=== PATIENT | female | born 1980 | race Caucasian/White ===

== ENCOUNTER 2016-10-03 14:41 | Emergency (ER) | payer OTHER ==
[2016-10-03 14:48] VITALS: TEMP 98; BMI 22.6
--- NOTE | 2016-10-03 15:01 | PDOC ---
Rapid Medical Evaluation Chief Complaint: Vaginal Bleeding Time Seen by Provider: 10/03/16 14:59 Medical Evaluation: Allergies Allergy/AdvReac Type Severity Reaction Status Date / Time No Known Allergies Allergy Verified 10/03/16 14:44 Vital Signs Temp Pulse Resp BP Pulse Ox 98.0 F 55 L 18 87/52 100 10/03/16 14:44 10/03/16 14:44 10/03/16 14:44 10/03/16 14:44 10/03/16 14:44 10/03/16 14:59 I have performed a brief in-person evaluation of this patient. The patient presents with a chief complaint of: Pertinent physical exam findings: Vag bleed, L/S CTAB The patient will proceed to the ED for further evaluation. 36 yo F presents c/o vag bleed today with lower abd cramping but without dizziness, lightheadedness, LMP 08/07/2016 Dr. 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 Pt had US and exam. Was told everything "was fine". The following was obtained and sent by me at 1500hrs CBC/Diff CMP TS UA Beta HCG US transvaginal NS IVB 1 liter right ac/ 18 gauge 10/03/16 15:04 Pelvic exam done by me in room 5/ER suite External Gentalia without erythema, exudate or discharge. VAGINAL VAULT: COPIOUS BLOOD CLOT WITH MEMBRANOUS TISSUE Cervix: [place]/smooth/without lesions OS: CLOSED
[2016-10-03 15:18] LABS: BASOPHIL 0.7 % (0-2.0); EOSINOPHIL 1.2 % (0-4.5); MCH 27.3 pg (25.7-33.7); MCHC 32.6 g/dl (32.0-36.0); MEAN CELL VOLUME 83.9 fl (80-96); MEAN PLT VOLUME 10.2 fl (7.5-11.1); NEUTROPHILS 65.2 % (42.8-82.8); PLATELET COUNT 151 K/MM3 (134-434); RDW 12.4 % (11.6-15.6); WHITE BLOOD COUNT 8.4 K/mm3 (4.0-10.0)
[2016-10-03 15:26] LABS: URINE APPEARANCE CLEAR; URINE BILIRUBIN NEGATIVE (NEGATIVE); URINE COLOR YELLOW; URINE GLUCOSE (UA) NEGATIVE (NEGATIVE); URINE KETONE TRACE (NEGATIVE); URINE LEUK ESTERASE NEGATIVE (NEGATIVE); URINE NITRITE NEGATIVE (NEGATIVE); URINE UROBILINOGEN NEGATIVE E.U./dl (0.2-1.0)
[2016-10-03 15:33] LABS: URINE BLOOD 3+ (NEGATIVE); URINE PROTEIN 1+ (NEGATIVE)
[2016-10-03] MEDS ORDERED: SODIUM CHLORIDE 1,000 ML IV STA (15:33)
--- NOTE | 2016-10-03 15:38 | PDOC ---
History of Present Illness <Jonathan Liao - Last Filed: 10/03/16 16:55> - General History Source: Patient Exam Limitations: No Limitations - History of Present Illness Initial Comments: 10/03/16 15:46 Healthy 36-year-old female LMP 08/07 with OB care by Dr. Cope and first ultrasound performed yesterday presents now with increased vaginal bleeding. Patient began noticing dark spotting 2 days ago, had her first scheduled ultrasound yesterday which showed an IUP but no detectable heart rate. Her vaginal spotting slightly increased yesterday, and today around 2:30 PM began having severe pelvic cramping with very heavy vaginal bleeding soaking through pads and with passage of clots and tissue. [place] lightheaded, was referred to the ED by Dr. Cope's office. Prior resulted in normal vaginal delivery, no other nurse gynecology surgeries or complications in the past. <Anoop Harris - Last Filed: 10/03/16 16:57> - General Chief Complaint: Vaginal Bleeding Stated Complaint: VAGINAL BLEED Time Seen by Provider: 10/03/16 14:59 Past History <Jonathan Liao - Last Filed: 10/03/16 16:55> - Past Medical History Anemia: Yes Asthma: No Cancer: No Cardiac Disorders: No CVA: No COPD: No CHF: No Dementia: No Diabetes: No GI Disorders: No Disorders: No HTN: No Hypercholesterolemia: No Liver Disease: No Seizures: No Thyroid Disease: No - Surgical History Abdominal Surgery: No Appendectomy: No Cardiac Surgery: No Cholecystectomy: No Lung Surgery: No Neurologic Surgery: No Orthopedic Surgery: No - Psycho/Social/Smoking Cessation Hx Anxiety: No Suicidal Ideation: No Smoking History: Never smoked Have you smoked in the past 12 months: No Information on smoking cessation initiated: No Hx Alcohol Use: No Drug/Substance Use Hx: No Substance Use Type: None Hx Substance Use Treatment: No <Anoop Harris - Last Filed: 10/03/16 16:57> - Past Medical History Allergies/Adverse Reactions: Allergies Allergy/AdvReac Type Severity Reaction Status Date / Time No Known Allergies Allergy Verified 10/03/16 14:44 Home Medications: Ambulatory Orders Pnv Comb.no58/Iron Bisgly/FA [ Capsule] 1 each PO DAILY 08/10/11 Review of Systems - Review of Systems Constitutional: No: Chills, Fever, Weakness Respiratory: No: Cough, Shortness of Breath Cardiac (ROS): Yes: Lightheadedness. No: Chest Pain, Edema, Syncope ABD/GI: Yes: Nausea. No: Diarrhea, Vomiting : Yes: See HPI All Other Systems: Reviewed and Negative <KimberlyAnoop - Last Filed: 10/03/16 16:57> *Physical Exam - Vital Signs Last Vital Signs Temp Pulse Resp BP Pulse Ox 98.0 F 55 L 18 87/52 100 10/03/16 14:44 10/03/16 14:44 10/03/16 14:44 10/03/16 14:44 10/03/16 14:44 <Jonathan Liao - Last Filed: 10/03/16 16:55> - Vital Signs Last Vital Signs Temp Pulse Resp BP Pulse Ox 98.0 F 55 L 18 87/52 100 10/03/16 14:44 10/03/16 14:44 10/03/16 14:44 10/03/16 14:44 10/03/16 14:44 - Physical Exam Comments: 10/03/16 15:49 Vital signs as noted, heart rate improved to 60s, was 55 at triage. GENERAL: The patient is awake, alert, and fully oriented, in no acute distress. HEAD: Normal with no signs of trauma. EYES: PERRL, EOMI, sclera anicteric, conjunctiva clear with no pallor. ENT: oropharynx clear without exudates. Moist mucous membranes. NECK: Normal range of motion, supple without lymphadenopathy, JVD, or masses. LUNGS: Breath sounds equal, clear to auscultation bilaterally. No wheeze/ crackles. HEART: Regular rate and rhythm, normal S1 and S2 without murmur or rub. ABDOMEN: Soft/nondistended. Suprapubic discomfort to palpation without guarding or rebound. No palpable masses. No hepatosplenomegaly. Pelvic as per PA Jessie. Bleeding currently improved. EXTREMITIES: Normal range of motion, no edema. 2+ distal pulses. No cords, erythema, or tenderness. NEUROLOGICAL: Cranial nerves II through XII grossly intact. Normal speech, normal gait. PSYCH: Normal mood, normal affect. SKIN: Warm, Dry, no rashes or lesions noted. <KimberlyAnoop - Last Filed: 10/03/16 16:57> ED Treatment Course - LABORATORY CBC & Chemistry Diagram: 10/03/16 15:05 10/03/16 15:05 - ADDITIONAL ORDERS Additional order review: Laboratory Results 10/03/16 10/03/16 10/03/16 15:05 15:05 15:05 Beta HCG, Quant 1668.9 Urine Color Yellow Urine Appearance Clear Urine pH 6.0 Urine Protein 1+ H Urine Glucose (UA) Negative Urine Ketones Trace H Urine Blood 3+ H Urine Nitrite Negative Urine Bilirubin Negative Urine Urobilinogen Negative Ur Leukocyte Esterase Negative Urine RBC 938 Urine WBC 4 Ur Epithelial Cells Rare Urine Mucus Rare Blood Type O POSITIVE Antibody Screen Negative 10/03/16 15:05 RBC 4.67 MCV 83.9 MCHC 32.6 RDW 12.4 MPV 10.2 Neutrophils % 65.2 Lymphocytes % 25.8 Monocytes % 7.1 Eosinophils % 1.2 Basophils % 0.7 - Medications Given in the ED: ED Medications Discontinued Medications Generic Name Dose Route Start Last Admin Trade Name Willemq PRN Reason Stop Dose Admin Acetaminophen 1,000 mg 10/03/16 15:45 10/03/16 16:48 Ofirmev Injection - IVPB 10/03/16 15:46 1,000 mg ONCE ONE Administration Sodium Chloride 1,000 mls @ 1,000 mls/hr 10/03/16 15:33 10/03/16 16:23 Normal Saline - IV 10/03/16 16:32 1,000 mls/hr ASDIR STA Administration <Jonathan Liao - Last Filed: 10/03/16 16:55> - LABORATORY CBC & Chemistry Diagram: 10/03/16 15:05 10/03/16 15:05 - ADDITIONAL ORDERS Additional order review: Laboratory Results 10/03/16 15:05 Urine Color Yellow Urine Appearance Clear Urine pH 6.0 Urine Protein 1+ H Urine Glucose (UA) Negative Urine Ketones Trace H Urine Blood 3+ H Urine Nitrite Negative Urine Bilirubin Negative Urine Urobilinogen Negative Ur Leukocyte Esterase Negative 10/03/16 15:05 RBC 4.67 MCV 83.9 MCHC 32.6 RDW 12.4 MPV 10.2 Neutrophils % 65.2 Lymphocytes % 25.8 Monocytes % 7.1 Eosinophils % 1.2 Basophils % 0.7 <Anoop Harris - Last Filed: 10/03/16 16:57> Medical Decision Making - Medical Decision Making 10/03/16 16:55 Dr. Cope was consulted regarding the patient at 4:55pm <Jonathan Liao - Last Filed: 10/03/16 16:55> - Medical Decision Making 10/03/16 15:50 36-year-old female LMP about 7 weeks presents now with heavy vaginal bleeding in the setting of ultrasound yesterday that showed no detectable heartbeat, all concerning for miscarriage. Hemodynamically stable, bleeding seems to have improved. Workup initiated at triage with labs including type and screen and hCG level Ultrasound IV fluids, Tylenol Reassess, will discuss dispo with Dr. Cope 10/03/16 16:52 HCG 1669, will send to sono. Hgb normal at 12.8, HD stable. UA with blood but no evidence of infection. Rh positive. 10/03/16 16:56 D/W Dr. Cope, aware of findings and agrees with plan: sono and dispo accordingly. Barring any emergent need for D+C or return of heavy bleeding, can f/u with her in the office this week. Pt was signed out to the oncoming ED physician to f/u the sono and dispo accordingly. <Anoop Harris - Last Filed: 10/03/16 16:57> *DC/Admit/Observation/Transfer <Jonathan Liao - Last Filed: 10/03/16 16:55> <Anoop Harris - Last Filed: 10/03/16 16:57> Diagnosis at time of Disposition: Vaginal bleeding before 22 weeks gestation - Discharge Dispostion Condition at time of disposition: Fair - Referrals Referrals: Elizabeth Cope DO [Staff Physician] -
[2016-10-03] MEDS ORDERED: ACETAMINOPHEN 1000 MG/100 ML VIAL (NON FORMULARY) IVPB ONE (15:45)
[2016-10-03 15:51] LABS: URINE MUCUS RARE; URINE RBC 938 /hpf (0-3); URINE WBC 4 /hpf (3-5)
[2016-10-03 16:34] LABS: ALBUMIN 4.2 g/dl (3.4-5.0); ANION GAP 8 (8-16); CALCIUM 9.1 mg/dL (8.5-10.1); CO2 27 mmol/L (21-32); CREATININE 0.7 mg/dL (0.55-1.02); GLUCOSE,RANDOM 121 mg/dL (74-106); SGOT/AST 13 U/L (15-37); SGPT/ALT 17 U/L (12-78)
[2016-10-03 16:35] LABS: ALK PHOS 83 U/L (45-117); BILIRUBIN,TOTAL 0.3 mg/dL (0.2-1.0); TOT PROT 7.1 g/dl (6.4-8.2)
[2016-10-03] MEDS ORDERED: ACETAMINOPHEN INJECTION 100 ML IVPB ONE (16:46)
--- NOTE | 2016-10-03 18:56 | PDOC ---
*Physical Exam - Vital Signs Last Vital Signs Temp Pulse Resp BP Pulse Ox 98.0 F 55 L 18 87/52 100 10/03/16 14:44 10/03/16 14:44 10/03/16 14:44 10/03/16 14:44 10/03/16 14:44 ED Treatment Course - LABORATORY CBC & Chemistry Diagram: 10/03/16 15:05 10/03/16 15:05 - ADDITIONAL ORDERS Additional order review: Laboratory Results 10/03/16 10/03/16 10/03/16 15:05 15:05 15:05 Sodium Potassium Chloride Carbon Dioxide Anion Gap BUN Creatinine Creat Clearance w eGFR Random Glucose Calcium Total Bilirubin AST ALT Alkaline Phosphatase Total Protein Albumin Beta HCG, Quant 1668.9 Urine Color Yellow Urine Appearance Clear Urine pH 6.0 Urine Protein 1+ H Urine Glucose (UA) Negative Urine Ketones Trace H Urine Blood 3+ H Urine Nitrite Negative Urine Bilirubin Negative Urine Urobilinogen Negative Ur Leukocyte Esterase Negative Urine RBC 938 Urine WBC 4 Ur Epithelial Cells Rare Urine Mucus Rare Blood Type O POSITIVE Antibody Screen Negative 10/03/16 15:05 Sodium 140 Potassium 3.8 Chloride 105 Carbon Dioxide 27 Anion Gap 8 BUN 10 Creatinine 0.7 Creat Clearance w eGFR > 60 Random Glucose 121 H D Calcium 9.1 Total Bilirubin 0.3 AST 13 L D ALT 17 Alkaline Phosphatase 83 D Total Protein 7.1 Albumin 4.2 Beta HCG, Quant Urine Color Urine Appearance Urine pH Urine Protein Urine Glucose (UA) Urine Ketones Urine Blood Urine Nitrite Urine Bilirubin Urine Urobilinogen Ur Leukocyte Esterase Urine RBC Urine WBC Ur Epithelial Cells Urine Mucus Blood Type Antibody Screen 10/03/16 15:05 RBC 4.67 MCV 83.9 MCHC 32.6 RDW 12.4 MPV 10.2 Neutrophils % 65.2 Lymphocytes % 25.8 Monocytes % 7.1 Eosinophils % 1.2 Basophils % 0.7 - Medications Given in the ED: ED Medications Discontinued Medications Generic Name Dose Route Start Last Admin Trade Name Freq PRN Reason Stop Dose Admin Acetaminophen 1,000 mg 10/03/16 15:45 10/03/16 16:48 Ofirmev Injection - IVPB 10/03/16 15:46 1,000 mg ONCE ONE Administration Sodium Chloride 1,000 mls @ 1,000 mls/hr 10/03/16 15:33 10/03/16 16:23 Normal Saline - IV 10/03/16 16:32 1,000 mls/hr ASDIR STA Administration Medical Decision Making - Medical Decision Making 10/03/16 18:55 [facility] [id number] PElvic US no IUP, irregular endometrial was in lower uterine segment -both ovaries unremarkable IMP miscarriage plan follow up with medical manager for repeat bhcg *DC/Admit/Observation/Transfer Diagnosis at time of Disposition: Threatened in early - Discharge Dispostion Disposition: HOME Condition at time of disposition: Stable - Referrals Referrals: Elizabeth Cope DO [Staff Physician] - - Patient Instructions Printed Discharge Instructions: DI for Threatened Additional Instructions: please follow up with Dr Cope -tod[place] [facility] [id number] ,need repeat bhcg - Post Discharge Activity
[2016-10-03 19:06] VITALS: BP 98/62; PULSE 72
== END 2016-10-03 19:06 | disposition home or self-care (01) ==
LOC: JER 14:41
PROC: 3E033NZ Introduction of Analgesics, Hypnotics, Sedatives into Peripheral Vein, Percutaneous Approach (ICD-10-PCS; principal; 2016-10-03)
PROC: 3E0337Z Introduction of Electrolytic and Water Balance Substance into Peripheral Vein, Percutaneous Approach (ICD-10-PCS; 2016-10-03)
DX: O26.891 Other specified pregnancy related conditions, first trimester (principal); Z3A.01 Less than 8 weeks gestation of pregnancy; N93.9 Abnormal uterine and vaginal bleeding, unspecified
CPT/HCPCS: 36415; 76817-TC; 80053; 81003; 81015; 84702; 85025; 86850; 86900; 86901; 99283-25

== ENCOUNTER 2018-08-21 16:13 | Inpatient (IN) | payer BC ==
[2018-08-21] MEDS ORDERED: AMPICILLIN SODIUM 2 GM VIAL ONE (16:50)
[2018-08-21] MEDS ORDERED: AMPICILLIN - 2 GM in SODIUM CHLORIDE 100 ML IVPB ONE (16:50)
[2018-08-21] MEDS ORDERED: TUBERCULIN PPD 5 TU/0.1ML SYRINGE (IN PATIENT USE ONLY) ID ONE (16:57)
[2018-08-21 17:09] VITALS: BMI 30.9
[2018-08-21] MEDS ORDERED: DEXTROSE 5%-LACTATED RINGERS 1,000 ML IV SCH (19:00)
[2018-08-21] MEDS ORDERED: AMPICILLIN SODIUM 1 GM VIAL ONE (19:21)
[2018-08-21 19:31] LABS: BASO % 0.4 % (0-2.0); EOS % 0.5 % (0-4.5); HEMATOCRIT 40.3 % (32.4-45.2); HEMOGLOBIN 13.2 GM/dL (10.7-15.3); LYMPH % 10.9 % (8-40); MCHC 32.8 g/dl (32.0-36.0); MEAN CELL VOLUME 85.5 fl (80-96); MEAN PLT VOLUME 12.1 fl (7.5-11.1); MONO % 7.5 % (3.8-10.2); NEUT % 80.7 % (42.8-82.8); PLATELET COUNT 117 K/MM3 (134-434); RBC 4.71 M/mm3 (3.60-5.2); RDW 13.4 % (11.6-15.6); WHITE BLOOD COUNT 12.4 K/mm3 (4.0-10.0)
--- NOTE | 2018-08-21 19:49 | HP ---
Past Medical History - Admission History of Present Illness: 38 y/o with SIUP at 40 weeks admitted in early labor. Seen in office, 3cm dilated and bulging membranes, pt with contractions every 5-6 minutes. Some bloody show this a.m. complicated by AMA and GBS positive. Otherwise uncomplicated. History Source: Patient, Medical Record Limitations to Obtaining History: No Limitations - Past Medical History Cardiovascular: No: AFIB, HTN Pulmonary: No: Asthma Gastrointestinal: No: GERD Hepatobiliary: No: Hepatitis B, Hepatitis C Renal/: No: UTI Reproductive: No: Ectopic , Fibroids, PID ...: 3 ...Para: 1 ...Term: 1 ...: 0 ...Spon : 1 ...Induced : 0 ...LMP: 11/14/17 ... Weeks Gestation by Dates: 40 ...EDC by Dates: 08/21/18 ...EDC by Sono: 08/19/18 Heme/Onc: No: Anemia Infectious Disease: No: HIV, MRSA, STD's Psych: No: Anxiety, Depression, Panic Rheumatology: No: Fibromyalgia - Past Surgical History Past Surgical History: Yes: None Hx Myomectomy: No Hx Transabdominal Cerclage: No - Smoking History Smoking history: Never smoked Have you smoked in the past 12 months: No - Alcohol/Substance Use Hx Alcohol Use: No - Social History Usual Living Arrangement: Yes: With Spouse ADL: Independent History of Recent Travel: No Home Medications - Allergies Allergies/Adverse Reactions: Allergies Allergy/AdvReac Type Severity Reaction Status Date / Time No Known Allergies Allergy Verified 10/03/16 14:44 - Home Medications Home Medications: Ambulatory Orders Pnv Comb.no58/Iron Bisgly/FA [ Capsule] 1 each PO DAILY 08/10/11 Review of Systems - Review of Systems Constitutional: reports: No Symptoms Eyes: reports: No Symptoms HENT: reports: No Symptoms Neck: reports: No Symptoms Cardiovascular: reports: No Symptoms Respiratory: reports: No Symptoms Gastrointestinal: reports: No Symptoms Genitourinary: reports: No Symptoms Breasts: reports: No Symptoms Reported Musculoskeletal: reports: No Symptoms Integumentary: reports: No Symptoms Neurological: reports: No Symptoms Endocrine: reports: No Symptoms Hematology/Lymphatic: reports: No Symptoms Psychiatric: reports: No Symptoms Physical Exam - Maternity Vital Signs: Vital Signs Temperature 97.8 F 08/21/18 17:57 Pulse Rate 89 08/21/18 17:57 Respiratory Rate 20 08/21/18 17:57 Blood Pressure 136/79 08/21/18 17:57 O2 Sat by Pulse Oximetry (%) Constitutional: Yes: Well Nourished, No Distress, Calm Eyes: Yes: EOM Intact HENT: Yes: Normocephalic Neck: Yes: Supple Cardiovascular: Yes: Regular Rate and Rhythm Lungs: Clear to auscultation - Abdominal Exam/OB Number of Fetuses: Single Presentation: Vertex Contractions: Yes Regularity: Regular Intensity: Mild/Mod Monitor Mode: External Category: I Accelerations: Uniform Decelerations: None - Vaginal Exam/OB Vaginal Bleediing: Yes, Light Speculum Exam: No Dilatation (cm): 4 Effacement (%): 100 Presentation: Vertex/Position Station: -3 - Physical Exam Psychiatric: Yes: Alert, Oriented - Labs Lab Results: CBC, BMP 08/21/18 19:00 Hemorrhage Risk Assessment - Risk Factors Medium Risk Factors: Yes: None High Risk Factors: Yes: None Risk Score: 1 Risk Level: Medium Risk Assessment/Plan early labor augment with pitocin GBS positive, s/p ampicillin X 1 dose, for ROM after 2nd dose
[2018-08-21] MEDS ORDERED: PROMETHAZINE HCL 25 MG/1 ML VIAL IVPUSH ONE (19:50)
[2018-08-21] MEDS ORDERED: BUTORPHANOL TARTRATE 1 MG/ML VIAL IVPB ONE (19:50)
--- NOTE | 2018-08-21 19:51 | HP ---
Past Medical History - Past Medical History ...: 3 ...Para: 1 ...Term: 1 ...: 0 ...Spon : 1 ...Induced : 0 ...LMP: 11/14/17 ... Weeks Gestation by Dates: 40 ...EDC by Dates: 08/21/18 ...EDC by Sono: 08/19/18 - Smoking History Smoking history: Never smoked Have you smoked in the past 12 months: No - Alcohol/Substance Use Hx Alcohol Use: No Home Medications - Allergies Allergies/Adverse Reactions: Allergies Allergy/AdvReac Type Severity Reaction Status Date / Time No Known Allergies Allergy Verified 10/03/16 14:44 - Home Medications Home Medications: Ambulatory Orders Pnv Comb.no58/Iron Bisgly/FA [ Capsule] 1 each PO DAILY 08/10/11 Physical Exam - Maternity Vital Signs: Vital Signs Temperature 97.8 F 08/21/18 17:57 Pulse Rate 89 08/21/18 17:57 Respiratory Rate 20 08/21/18 17:57 Blood Pressure 136/79 08/21/18 17:57 O2 Sat by Pulse Oximetry (%) - Labs Lab Results: CBC, BMP 08/21/18 19:00
[2018-08-21 19:52] LABS: INR 0.95 (0.83-1.09); PROTHROMBIN TIME (PATIENT) 11.2 SEC (9.7-13.0)
[2018-08-21 19:54] LABS: CREATININE 0.8 mg/dL (0.55-1.3); POTASSIUM 3.8 mmol/L (3.5-5.1)
[2018-08-21 19:55] LABS: ACTIVATED PTT 27.3 SECONDS (25.2-36.5)
[2018-08-21] MEDS ORDERED: OXYTOCIN 30 UNITS in 0.9% NS 30 UNIT/500 ML INFUS.BAG IVPB SCH (20:00)
[2018-08-21] MEDS ORDERED: OXYTOCIN 30 UNITS in 0.9% NS 30 UNIT/500 ML INFUS.BAG IVPB ONE (20:01)
[2018-08-21] MEDS: AMPICILLIN - 1 GM in SODIUM CHLORIDE 100 ML IVPB SCH (20:30)
[2018-08-21] MEDS ORDERED: FENTANYL/BUPIVACAINE/NS/PF - PCEA - 50 ML DISP.SYRIN EP ONE (21:11)
[2018-08-21] MEDS ORDERED: BUPIVACAINE HCL/PF 0.25% (2.5MG/ML) 10 ML VIAL ONE (21:13)
[2018-08-21] MEDS ORDERED: LIDO 2%/EPI 1:200000 PRESRVFRE (20 ML SDVIAL) ONE (21:13)
[2018-08-21] MEDS ORDERED: NALOXONE HCL 0.4 MG/ML VIAL IVPUSH PRN (21:36)
[2018-08-21] MEDS ORDERED: FENTANYL/BUPIVACAINE/NS/PF - PCEA - 50 ML DISP.SYRIN EP SCH (21:45)
[2018-08-22] MEDS ORDERED: AMPICILLIN SODIUM 1 GM VIAL ONE (00:01)
[2018-08-22] MEDS: AMPICILLIN - 1 GM in SODIUM CHLORIDE 100 ML IVPB SCH (00:30)
[2018-08-22] MEDS ORDERED: BISACODYL 10 MG SUPP.RECT RC PRN (02:06)
[2018-08-22] MEDS ORDERED: METHYLERGONOVINE MALEATE 0.2 MG/1 ML AMP IM PRN (02:06)
[2018-08-22] MEDS ORDERED: BENZOCAINE 28 GM HEMORRHOIDAL OINTMENT TP PRN (02:06)
[2018-08-22] MEDS ORDERED: BENZOCAINE 20% 57 GM BOTTLE TP PRN (02:06)
[2018-08-22] MEDS ORDERED: WITCH HAZEL 50% (TUCKS) 40 PAD/JAR PAD TP PRN (02:06)
--- NOTE | 2018-08-22 02:11 | PN ---
Delivery - Delivery Vaginal Delivery: No Problems Type of Anesthesia: Epidural Episiotomy/Laceration: 2nd degree EBL (cc): 300 Delivery, Single - Stages of Labor Date 1st Stage Initiatied: 08/21/18 Time 1st Stage Initiated: 20:00 Date 2nd Stage Initiated: 08/22/18 Date of Delivery: 08/22/18 Time of Delivery: 01:43 Date Placenta Delivered: 08/22/18 Time Placenta Delivered: 01:49 Placenta: Yes: Spontaneous - Condition of Infant Infant Gender: Male Position: Right, OA - 1 Minute Total Score: 7 5 Minutes Total Score: 9 - Feeding Plan Initial Plan: Exclusive throughout hospitalization Remarks - Remarks Remarks: Uncomplicated of baby boy from [place] position tight nuchal cord noted after delivery of baby head, clamped and cut at perineum anterior shoulder (left) delivered with ease along with remainder of baby taken directly to warmer after delivery to be assessed by nursery staff placenta delivered with 3VC, in tact, spontaneously 2nd degree laceration repaired with 2-0 chromic suture in usual fashion sponge and needle count correct mom stable baby to nursery
[2018-08-22] MEDS ORDERED: OXYTOCIN 20 UNITS in 0.9% NS 20 UNIT/1,000 ML INFUS.BAG IV SCH (02:15)
[2018-08-22] MEDS: ACETAMINOPHEN 325 MG TABLET (FP) PO PRN ×2 (03:59→17:08)
[2018-08-22] MEDS: IBUPROFEN 600 MG TABLET (FP) PO PRN ×2 (03:59→17:09)
[2018-08-22] MEDS: FERROUS SO4 325 MG TABLET (FP) PO SCH ×3 (07:30→17:10)
[2018-08-22] MEDS: PRENATAL VITAMINS W/ FOLIC ACID TABLET (FP) PO SCH (10:03)
[2018-08-23 07:30] LABS: BASO % 0.5 % (0-2.0); EOS % 1.4 % (0-4.5); HEMATOCRIT 38.6 % (32.4-45.2); HEMOGLOBIN 12.5 GM/dL (10.7-15.3); LYMPH % 16.9 % (8-40); MCH 27.9 pg (25.7-33.7); MCHC 32.5 g/dl (32.0-36.0); MEAN CELL VOLUME 85.7 fl (80-96); MEAN PLT VOLUME 10.9 fl (7.5-11.1); MONO % 7.8 % (3.8-10.2); NEUT % 73.4 % (42.8-82.8); PLATELET COUNT 112 K/MM3 (134-434); RDW 13.5 % (11.6-15.6); WHITE BLOOD COUNT 11.6 K/mm3 (4.0-10.0)
[2018-08-23] MEDS: FERROUS SO4 325 MG TABLET (FP) PO SCH ×3 (07:58→17:03)
[2018-08-23 09:08] VITALS: BP 101/56; PULSE 66; TEMP 97.8
[2018-08-23] MEDS ORDERED: DIPHTH,PERTUSS(ACELL),TET 0.5 ML DISP.SYRIN IM ONE (10:00)
[2018-08-23] MEDS ORDERED: FLU VACCINE QUAD 60 MCG/0.5 ML (MDV 18-19) IM ONE (10:00)
[2018-08-23] MEDS: PRENATAL VITAMINS W/ FOLIC ACID TABLET (FP) PO SCH (10:36)
--- NOTE | 2018-08-23 13:10 | PN ---
Post Progress Note Type of Delivery: Vital Signs: Vital Signs Temperature 97.8 F 08/23/18 09:03 Pulse Rate 66 08/23/18 09:03 Respiratory Rate 20 08/23/18 09:03 Blood Pressure 101/56 L 08/23/18 09:03 O2 Sat by Pulse Oximetry (%) 100 08/22/18 00:50 Uterus: Yes: Fundus Firm Lochia: Yes: Rubra Lochia, amount: Small Extremities: Yes: Calves non-tender Perineum: Yes: Laceration (2nd degree , healing well) Activity: Ambulating - Labs Labs: CBC WBC 11.6 K/mm3 (4.0-10.0) H 08/23/18 06:00 RBC 4.50 M/mm3 (3.60-5.2) 08/23/18 06:00 Hgb 12.5 GM/dL (10.7-15.3) 08/23/18 06:00 Hct 38.6 % (32.4-45.2) 08/23/18 06:00 MCV 85.7 fl (80-96) 08/23/18 06:00 MCH 27.9 pg (25.7-33.7) 08/23/18 06:00 MCHC 32.5 g/dl (32.0-36.0) 08/23/18 06:00 RDW 13.5 % (11.6-15.6) 08/23/18 06:00 Plt Count 112 K/MM3 (134-434) L 08/23/18 06:00 MPV 10.9 fl (7.5-11.1) 08/23/18 06:00 Absolute Neuts (auto) 8.5 K/mm3 (1.5-8.0) H 08/23/18 06:00 Neutrophils % 73.4 % (42.8-82.8) 08/23/18 06:00 Lymphocytes % 16.9 % (8-40) D 08/23/18 06:00 Monocytes % 7.8 % (3.8-10.2) 08/23/18 06:00 Eosinophils % 1.4 % (0-4.5) D 08/23/18 06:00 Basophils % 0.5 % (0-2.0) 08/23/18 06:00 Nucleated RBC % 0 % (0-0) 08/23/18 06:00 Problem List - Problems (1) Vaginal delivery Code(s): O80 - ENCOUNTER FOR FULL-TERM UNCOMPLICATED DELIVERY Assessment/Plan uncomplicated yesterday pt doing well AFVSS CBC WNL ok for discharge home today
--- NOTE | 2018-08-23 13:12 | DS ---
Physical Exam-[employer] Vital Signs: Vital Signs Temperature 97.8 F 08/23/18 09:03 Pulse Rate 66 08/23/18 09:03 Respiratory Rate 20 08/23/18 09:03 Blood Pressure 101/56 L 08/23/18 09:03 O2 Sat by Pulse Oximetry (%) 100 08/22/18 00:50 Constitutional: Yes: Well Nourished, No Distress, Calm Eyes: Yes: Conjunctiva Clear HENT: Yes: Atraumatic Neck: Yes: Supple Cardiovascular: Yes: Regular Rate and Rhythm Gastrointestinal: Yes: Normal Bowel Sounds, Soft ....Post : Yes: Uterus firm, Uterus non-tender Neurological: Yes: Alert, Oriented Psychiatric: Yes: Alert, Oriented Labs: CBC, BMP 08/23/18 06:00 08/21/18 19:00 Delivery - Delivery Vaginal Delivery: No Problems Type of Anesthesia: Epidural Episiotomy/Laceration: 2nd degree EBL (cc): 300 Delivery, Single - Stages of Labor Date 1st Stage Initiatied: 08/21/18 Time 1st Stage Initiated: 20:00 Date 2nd Stage Initiated: 08/22/18 Time 2nd Stage Initiated: 01:00 Date of Delivery: 08/22/18 Time of Delivery: 01:43 Time Placenta Delivered: 01:49 Placenta: Yes: Spontaneous - Condition of Farm Assistant/Acct Exec Present: No Infant Gender: Male Weight: 7 lb 11 oz Position: Right, OA Total Hours ROM (Hrs/Mins): 4H53M - 1 Minute Total Score: 7 5 Minutes Total Score: 9 - [place] Feeding Plan Initial Plan: Exclusive throughout hospitalization Discharge Summary Reason For Visit: ADMIT FOR LABOR Current Active Problems Vaginal delivery (Acute) Hospital Course: PT admitted on 08/21 in early labor, augmented with pitocin and AROM. Pt had normal early 08/22/2018. Had uncomplicated post recovery and was discharged on 08/23/2018. Condition: Good - Instructions Diet, Activity, Other Instructions: Physical activity Resume your normal everyday activity as tolerated no heavy lifting or exercise until seen by your surgeon. You may walk unlimited jack of and climb stairs. You may resume driving the car when you feel safe and comfortable behind the wheel. No sexual activity as instructed. Wound care If you have a bandage, leave it on, and keep dry for 48-72 hours. After that time discard the outer bandage. If they are tapes on the skin under the out of bandage leave them in place. They will peel off in the next 7 to 10 days. Do Not Peel them off. You may shower the day after surgery. If there are tapes present on the skin, you may shower over them. Diet There are no dietary restrictions. Eat healthy, high-fiber foods. Drink 6 to 8 glasses of liquid each day. This will assist in keeping your bowels are regular. Pain management You may take Tylenol or acetaminophen or Ibuprofen (for example, Motrin, Advil etc.) from my pain prescription medication is ordered should be taken as prescribed for moderate to severe pain. Call MD for any of the following: Severe pain not relieved by medication Fever of 101 or higher Excessive bleeding or drainage on dressing Inability to urinate Disposition: HOME - Home Medications Comprehensive Discharge Medication List: Ambulatory Orders Pnv Comb.no58/Iron Bisgly/FA [ Capsule] 1 each PO DAILY 08/10/11
[2018-08-23] MEDS ORDERED: SENNOSIDES/DOCUSATE COMBO (SENNA PLUS) TABLET (UD) PO PRN (22:00)
== END 2018-08-23 19:55 | disposition home or self-care (01) | DRG 807 ==
LOC: JLDR 16:13 → J3W 08-22 03:20
PROVIDERS: ADMIT Obstetrics & Gynecology; ATTEND Obstetrics & Gynecology
PROC: 10E0XZZ Delivery of Products of Conception, External Approach (ICD-10-PCS; principal; 2018-08-21)
PROC: 0KQM0ZZ Repair Perineum Muscle, Open Approach (ICD-10-PCS; 2018-08-22)
DX: O99.824 Streptococcus B carrier state complicating childbirth (principal); Z37.0 Single live birth; O48.0 Post-term pregnancy; O70.1 Second degree perineal laceration during delivery; Z3A.40 40 weeks gestation of pregnancy
CPT/HCPCS: 36415; 59409; 71046-TC-FY; 80048; 85025; 85610; 85730; 86593; 86850; 86900; 86901; 87389; 90688; 90715; G0008